=== PATIENT | male | born 1940 | race Caucasian/White ===

== ENCOUNTER 2018-08-20 20:33 | Inpatient (IN) | payer MEDICARE, BC ==
[~2018-08-20] VITALS: Ht 175.3 cm; Wt 68.5 kg
[2018-08-20] MEDS ORDERED: temazepam 15mg capsule PO PRN (21:00)
[2018-08-20] MEDS ORDERED: aspirin 81mg tab.chew PO ONE (21:15)
[2018-08-20] MEDS ORDERED: heparin 10,000 units/1 ML INJ IV ONE (21:15)
[2018-08-20] MEDS: heparin 25,000 UNIT/250ml bag 250 ML IV SCH (21:48)
[2018-08-20 22:07] LABS: PARTIAL THROMBOPLASTIN TIME 38 SECONDS (22-32)
[2018-08-20 22:09] LABS: ALBUMIN 2.8 G/DL (3.4-5.0); ALBUMIN/GLOBULIN RATIO 0.8 (1.1-1.5); ALKALINE PHOSPHATASE 84 IU/L (46-116); ANION GAP 9 (8-16); ASPARTATE AMINO TRANSFERASE 48 U/L (10-37); BILIRUBIN,TOTAL 0.5 MG/DL (0.1-1.0); BLOOD UREA NITROGEN 54 MG/DL (7-18); BUN/CREATININE RATIO 19.7 (6.6-38.0); CHLORIDE 100 MMOL/L (99-107); CREATININE 2.74 MG/DL (0.40-0.90); GLUCOSE 138 MG/DL (70-104); MAGNESIUM 2.8 MG/DL (1.5-2.4); POTASSIUM 4.6 MMOL/L (3.5-5.1); RED CELL DISTRIBUTION WIDTH 14.7 % (11.5-14.5); SODIUM 135 MMOL/L (135-145); TOTAL PROTEIN 6.2 G/DL (6.4-8.2); eGFR 17 ML/MIN
[2018-08-20 22:29] LABS: ALANINE AMINOTRANSFERASE 43 U/L (12-78)
[2018-08-20 22:47] LABS: WHITE BLOOD COUNT 10.8 X10'3 (4.5-11.0)
[2018-08-20 22:48] LABS: HEMATOCRIT 36.2 % (35.0-45.0); HEMOGLOBIN 11.8 g/dl (12.0-16.0); MEAN CORPUSCULAR HEMOGLOBIN 28.3 PG (27.0-31.0); MEAN CORPUSCULAR HGB CONC 32.7 % (33.0-36.5); MEAN CORPUSCULAR VOLUME 86.6 FL (78-98); MEAN PLATELET VOLUME 8.2 FL (7.4-10.4); PLATELET COUNT 768 X10'3 (140-440); RED BLOOD COUNT 4.18 X10'6 (4.20-5.60)
[2018-08-20 22:49] LABS: BASOPHILS % (AUTO) 0.2 % (0-1); EOSINOPHILS % (AUTO) 0 % (0-6); LYMPHOCYTES # (AUTO) 0.2 X10'3 (1.1-4.8); LYMPHOCYTES % (AUTO) 1.7 % (21-51); MONOCYTES # (AUTO) 0.3 X10'3 (0-0.9); MONOCYTES % (AUTO) 2.7 % (2-12); NEUTROPHILS # (AUTO) 10.3 X10'3 (1.8-7.7); NEUTROPHILS % (AUTO) 95.4 % (42-75)
[2018-08-20] MEDS ORDERED: bisacodyl 10mg suppository rectal RC PRN (22:50)
[2018-08-20] MEDS ORDERED: magnesium hydroxide 30ml (MOM) UD suspension PO PRN (22:50)
[2018-08-20] MEDS ORDERED: ondansetron/PF 4mg/2ml inj IV PRN (22:50)
[2018-08-20] MEDS ORDERED: diphenhydrAMINE 25mg capsule PO PRN (22:50)
[2018-08-20] MEDS ORDERED: acetaminophen 650mg rectal suppository RC PRN (22:50)
[2018-08-20] MEDS ORDERED: acetaminophen 325mg tablet PO PRN ×2 (22:50)
[2018-08-20] MEDS ORDERED: morphine 4 MG/ML inj SYRINge IV PRN ×2 (22:50)
[2018-08-20] MEDS ORDERED: mag hydrox/Alum hydrox/simeth 30ml oral suspension PO PRN (22:50)
[2018-08-20] MEDS ORDERED: diphenhydrAMINE 50 mg/ml inj IV PRN (22:50)
[2018-08-20] MEDS ORDERED: metoclopramide 5 mg/ml inj IV PRN (22:50)
[2018-08-20 23:37] LABS: HEMOGLOBIN A1C 5.5 % (4.5-6.2)
[2018-08-20 23:40] LABS: PHOSPHORUS 5.9 MG/DL (2.3-4.5)
[2018-08-21] VITALS (7 sets, daily range): BP systolic 113–148; BP diastolic 61–78
[2018-08-21] MEDS ORDERED: azithromycin/NS 500mg/250ml 250 ML IV SCH
[2018-08-21] MEDS: normal saline 1000ml 1,000 ML IV SCH (00:09)
[2018-08-21] MEDS: pantoprazole 40 MG vial IV SCH ×2 (00:09→08:06)
--- NOTE | 2018-08-21 00:16 | NUR ---
PT GIVEN MORPHINE FOR 6 OUT OF 10 PAIN TO HIS HIP. ZITHROMAX STARTED AND MIVF NS AT 20. AWITING IPA.
--- NOTE | 2018-08-21 00:23 | NUR ---
DAUGHTER, SCOTT RUVALCABA, CELL [phone]. HOME: [phone].
--- NOTE | 2018-08-21 01:30 | NUR ---
pt arrived to floor via gurney and transferred via slide board to bed. VSS, pt oriented to room and call light. 2RN skin check performed with Kamaljit KRAFT.
[2018-08-21] MEDS ORDERED: ipratropium/albuterol 3ml nebule NEB PRN (03:00)
[2018-08-21] MEDS: CefTRIAXone/D5W-Rocephin 1gm 50 ML IV SCH (03:07)
[2018-08-21 04:24] LABS: BASOPHILS % (AUTO) 0.2 % (0-1); EOSINOPHILS % (AUTO) 0.1 % (0-6); HEMATOCRIT 35.1 % (42.0-52.0); HEMOGLOBIN 11.4 g/dl (14.0-17.9); LYMPHOCYTES # (AUTO) 0.2 X10'3 (1.1-4.8); LYMPHOCYTES % (AUTO) 1.9 % (21-51); MEAN CORPUSCULAR HEMOGLOBIN 28.5 PG (27.0-31.0); MEAN CORPUSCULAR HGB CONC 32.6 % (33.0-36.5); MEAN CORPUSCULAR VOLUME 87.4 FL (78-98); MEAN PLATELET VOLUME 8.7 FL (7.4-10.4); MONOCYTES # (AUTO) 0.4 X10'3 (0-0.9); MONOCYTES % (AUTO) 4.4 % (2-12); NEUTROPHILS # (AUTO) 8.7 X10'3 (1.8-7.7); NEUTROPHILS % (AUTO) 93.4 % (42-75); PLATELET COUNT 724 X10'3 (140-440); RED BLOOD COUNT 4.02 X10'6 (4.70-6.10); WHITE BLOOD COUNT 9.3 X10'3 (4.5-11.0)
[2018-08-21 04:33] LABS: ALANINE AMINOTRANSFERASE 41 U/L (12-78); ALBUMIN 2.7 G/DL (3.4-5.0); ALBUMIN/GLOBULIN RATIO 0.8 (1.1-1.5); ALKALINE PHOSPHATASE 82 IU/L (46-116); ANION GAP 12 (8-16); ASPARTATE AMINO TRANSFERASE 50 U/L (10-37); BILIRUBIN,TOTAL 0.3 MG/DL (0.1-1.0); BLOOD UREA NITROGEN 59 MG/DL (7-18); BUN/CREATININE RATIO 21.7 (5.4-32.0); CALCIUM 7.9 MG/DL (8.5-10.1); CHLORIDE 100 MMOL/L (99-107); CHOLESTEROL 106 MG/DL (0-200); CREATININE 2.72 MG/DL (0.60-1.10); GLUCOSE 134 MG/DL (70-104); HDL CHOLESTEROL 35 MG/DL (35-60); LDL CHOLESTEROL 52 MG/DL (50-100); POTASSIUM 4.7 MMOL/L (3.5-5.1); SODIUM 138 MMOL/L (135-145); TOTAL CARBON DIOXIDE 26.5 MMOL/L (24-32); TOTAL PROTEIN 6.2 G/DL (6.4-8.2); TRIGLYCERIDES 82 MG/DL (20-135); eGFR 23 ML/MIN
[2018-08-21] MEDS: heparin 25,000 UNIT/250ml bag 250 ML IV SCH (05:12)
--- NOTE | 2018-08-21 06:13 | NUR ---
Problems reprioritized. Patient report given, questions answered & plan of care reviewed with Barb KRAFT.
--- NOTE | 2018-08-21 06:30 | NUR ---
Patient in room PCU 3019. I have received report from Danielle KRAFT and had the opportunity to ask questions and assume patient care.
[2018-08-21] MEDS: docusate sod 100mg capsule PO SCH ×2 (08:07→21:03)
[2018-08-21] MEDS: aspirin 81mg tab.chew PO SCH (08:07)
[2018-08-21] MEDS: metoprolol tartrate 12.5mg (1/2 tablet) PO SCH ×2 (08:08→21:06)
[2018-08-21] MEDS: oseltamivir phos 75mg capsule PO SCH ×2 (08:08→21:04)
[2018-08-21] MEDS: nitroGLYCERIN 0.1mg/hour patch TD SCH (08:08)
[2018-08-21 11:12] LABS: CREATINE KINASE 278 U/L (39-308)
--- NOTE | 2018-08-21 11:18 | NUR ---
Paged Dr. Richards: PAGER ID: [phone] MESSAGE: Barb ALVA [phone] RE: Bobby Stoner [phone]. Critical value from lab. 12 hr troponin: 2.72.
[2018-08-21] MEDS: atorvastatin 10mg tablet PO SCH (11:50)
[2018-08-21] MEDS: furosemide 20 MG/2 ML vial IV SCH ×2 (11:50→21:03)
[2018-08-21] MEDS ORDERED: HYDR12.55 PO (12:27)
[2018-08-21] MEDS ORDERED: IPRA3AMP31 IH (12:27)
[2018-08-21] MEDS ORDERED: FLO0.4C PO (12:27)
[2018-08-21] MEDS ORDERED: ALB0.5UD IH (12:27)
[2018-08-21] MEDS ORDERED: PRED5TAB PO (12:27)
[2018-08-21] MEDS ORDERED: ALBU18HF2 INH (12:27)
[2018-08-21] MEDS ORDERED: non-formulary drug (Albuterol Sulfate (Ventolin Hfa) 2 PUFFS) INH PRN (16:50)
[2018-08-21] MEDS: heparin 10,000 units/1 ML INJ IV PRN (18:30)
--- NOTE | 2018-08-21 18:30 | NUR ---
Problems reprioritized. Patient report given, questions answered & plan of care reviewed with Zuleima KRAFT.
[2018-08-21] MEDS: ipratropium/albuterol 3ml nebule IH SCH (19:56)
[2018-08-21] MEDS: lactobacillus rhamnosus 10,000 MMU CELLS/CAPSULE PO SCH (21:04)
[2018-08-22] VITALS (8 sets, daily range): BP systolic 97–149; BP diastolic 55–69
[2018-08-22] MEDS: heparin 10,000 units/1 ML INJ IV PRN (02:05)
[2018-08-22] MEDS: heparin 25,000 UNIT/250ml bag 250 ML IV SCH ×4 (02:08→17:48)
[2018-08-22] MEDS: CefTRIAXone/D5W-Rocephin 1gm 50 ML IV SCH (02:46)
--- NOTE | 2018-08-22 06:23 | NUR ---
Patient in room PCU 3019. I have received report from Zuleima KRAFT and had the opportunity to ask questions and assume patient care. Will continue to monitor patient.
--- NOTE | 2018-08-22 06:30 | NUR ---
Problems reprioritized. Patient report given, questions answered & plan of care reviewed with Abiola KRAFT.
[2018-08-22] MEDS: furosemide 20 MG/2 ML vial IV SCH (07:27)
[2018-08-22] MEDS: lactobacillus rhamnosus 10,000 MMU CELLS/CAPSULE PO SCH ×2 (07:28→20:09)
[2018-08-22] MEDS: atorvastatin 10mg tablet PO SCH (07:28)
[2018-08-22] MEDS: tamsulosin 0.4mg capsule PO SCH (07:28)
[2018-08-22] MEDS: nitroGLYCERIN 0.1mg/hour patch TD SCH (07:28)
[2018-08-22] MEDS: pantoprazole 40mg Tablet.DR PO SCH (07:29)
[2018-08-22] MEDS: aspirin 81mg tab.chew PO SCH (07:29)
[2018-08-22] MEDS: HYDROchlorothiazide 12.5mg capsule PO SCH (07:29)
[2018-08-22] MEDS: docusate sod 100mg capsule PO SCH ×2 (07:29→20:09)
[2018-08-22] MEDS: metoprolol tartrate 12.5mg (1/2 tablet) PO SCH ×2 (07:32→20:10)
[2018-08-22] MEDS: oseltamivir phos 75mg capsule PO SCH ×2 (07:32→20:09)
[2018-08-22 07:46] LABS: BASOPHILS % (AUTO) 0 % (0-1); EOSINOPHILS # (AUTO) 0.1 X10'3 (0-0.9); HEMATOCRIT 36.9 % (42.0-52.0); LYMPHOCYTES # (AUTO) 0.4 X10'3 (1.1-4.8); LYMPHOCYTES % (AUTO) 4.3 % (21-51); MEAN CORPUSCULAR HGB CONC 32.4 % (33.0-36.5); MEAN CORPUSCULAR VOLUME 86.4 FL (78-98); MEAN PLATELET VOLUME 8.6 FL (7.4-10.4); MONOCYTES # (AUTO) 0.6 X10'3 (0-0.9); MONOCYTES % (AUTO) 6.5 % (2-12); NEUTROPHILS # (AUTO) 8.3 X10'3 (1.8-7.7); NEUTROPHILS % (AUTO) 88.2 % (42-75); PLATELET COUNT 838 X10'3 (140-440); RED BLOOD COUNT 4.27 X10'6 (4.70-6.10); RED CELL DISTRIBUTION WIDTH 15.7 % (11.5-14.5); WHITE BLOOD COUNT 9.4 X10'3 (4.5-11.0)
[2018-08-22] MEDS ORDERED: predniSONE 5mg tablet PO SCH (08:00)
[2018-08-22 08:03] LABS: ALANINE AMINOTRANSFERASE 34 U/L (12-78); ALBUMIN 2.5 G/DL (3.4-5.0); ALBUMIN/GLOBULIN RATIO 0.7 (1.1-1.5); ALKALINE PHOSPHATASE 67 IU/L (46-116); ANION GAP 11 (8-16); ASPARTATE AMINO TRANSFERASE 47 U/L (10-37); BILIRUBIN,TOTAL 0.3 MG/DL (0.1-1.0); BLOOD UREA NITROGEN 73 MG/DL (7-18); BUN/CREATININE RATIO 30.3 (5.4-32.0); CALCIUM 7.7 MG/DL (8.5-10.1); CHLORIDE 100 MMOL/L (99-107); CREATININE 2.41 MG/DL (0.60-1.10); GLUCOSE 99 MG/DL (70-104); POTASSIUM 4.1 MMOL/L (3.5-5.1); SODIUM 137 MMOL/L (135-145); TOTAL CARBON DIOXIDE 26.1 MMOL/L (24-32); TOTAL PROTEIN 5.9 G/DL (6.4-8.2); eGFR 26 ML/MIN
[2018-08-22] MEDS: ipratropium/albuterol 3ml nebule IH SCH ×6 (08:12→23:23)
[2018-08-22 08:33] LABS: TROPONIN I 2.79 NG/ML (0.0-0.05)
[2018-08-22] MEDS ORDERED: diltiazem 5mg/ml 5ml inj. IV ONE (09:00)
--- NOTE | 2018-08-22 10:03 | NUR ---
Sent page to Dr. Richards: PAGER ID: [phone] MESSAGE: [phone] Herbie: HR 114, BP 113/69 30 mins after 10mg IV Cardizem push. Thanks, Abiola hernandez [phone]
[2018-08-22] MEDS ORDERED: diltiazem-D5W 125mg/125ml 125 ML IV SCH (10:10)
--- NOTE | 2018-08-22 10:15 | NUR ---
Received telephone orders from Dr. Richards to start IV Cardizem at 5mLs/hr
--- NOTE | 2018-08-22 11:01 | NUR ---
Called pharmacy twice, still preparing the bag of cardizem
[2018-08-22 11:40] LABS: PLATELET ESTIMATE INCREASED
[2018-08-22 11:41] LABS: ANISOCYTOSIS 1+
[2018-08-22 11:42] LABS: BURR CELLS 1+; ELLIPTOCYTES 1+; POLYCHROMASIA 1+
[2018-08-22] MEDS: methylPREDNISolone sod succ 125mg/2ml vial IV SCH ×2 (12:06→15:04)
--- NOTE | 2018-08-22 13:56 | NUR ---
Sent page to Dr. Richards: PAGER ID: [phone] MESSAGE: [phone] Herbie: HR is sustaining 130's-140's, BP 109/69. Cardizem running at 5/hr, would you like it increased? Thanks, Abiola x [phone]
--- NOTE | 2018-08-22 14:00 | NUR ---
Received telephone order from Dr. Richards to increase Cardizem gtt rate to 7mLs/hr. Will continue to monitor patient.
--- NOTE | 2018-08-22 14:37 | NUR ---
Sent page to Dr. Richards: PAGER ID: [phone] MESSAGE: [phone] Herbie: HR 125 and BP 113/61. Cardizem running at 7/hr. Thanks, Abiola [phone]
--- NOTE | 2018-08-22 14:40 | NUR ---
Received telephone order from Dr. Richards to increase Cardizem gtt rate to 8mLs/hr. Will continue to monitor patient.
--- NOTE | 2018-08-22 15:54 | NUR ---
Sent page to Dr. Richards: PAGER ID: [phone] MESSAGE: [phone] Herbie: HR 119, BR 97/55. Jooix running at 8/hr. Thanks, Abiola [phone]
[2018-08-22] MEDS: normal saline 1000ml 1,000 ML IV SCH ×2 (16:05→22:48)
--- NOTE | 2018-08-22 17:09 | NUR ---
Sent page to Dr. Richards: PAGER ID: [phone] MESSAGE: [phone] Herbie: Patient has converted to NSR with HR in 80's, BP 100/57. Cardizem still running at 7/hr, NS @ 80/hr. Thanks, Abiola [phone]
--- NOTE | 2018-08-22 17:11 | NUR ---
Received telephone orders from Dr. Richards to stop the Cardizem drip since the patient converted to NSR.
--- NOTE | 2018-08-22 18:16 | NUR ---
Problems reprioritized. Patient report given, questions answered & plan of care reviewed with Zuleima KRAFT. Bedside report complete, patient stable at transfer of care.
--- NOTE | 2018-08-22 18:30 | NUR ---
Patient in room PCU 3019. I have received report from Abiola KRAFT and had the opportunity to ask questions and assume patient care.
[2018-08-23] MEDS: methylPREDNISolone sod succ 125mg/2ml vial IV SCH ×3 (00:23→19:41)
[2018-08-23 02:00] VITALS: BP 132/57
[2018-08-23 02:33] LABS: BASOPHILS % (AUTO) 0 % (0-1); EOSINOPHILS % (AUTO) 0.7 % (0-6); HEMATOCRIT 38.5 % (42.0-52.0); HEMOGLOBIN 12.4 g/dl (14.0-17.9); LYMPHOCYTES # (AUTO) 0.2 X10'3 (1.1-4.8); LYMPHOCYTES % (AUTO) 3.8 % (21-51); MEAN CORPUSCULAR HEMOGLOBIN 27.7 PG (27.0-31.0); MEAN CORPUSCULAR HGB CONC 32.3 % (33.0-36.5); MEAN CORPUSCULAR VOLUME 85.7 FL (78-98); MEAN PLATELET VOLUME 8.2 FL (7.4-10.4); MONOCYTES # (AUTO) 0.2 X10'3 (0-0.9); MONOCYTES % (AUTO) 3.6 % (2-12); NEUTROPHILS % (AUTO) 91.9 % (42-75); PLATELET COUNT 802 X10'3 (140-440); RED BLOOD COUNT 4.49 X10'6 (4.70-6.10); WHITE BLOOD COUNT 4.3 X10'3 (4.5-11.0)
[2018-08-23] MEDS: CefTRIAXone/D5W-Rocephin 1gm 50 ML IV SCH (02:33)
[2018-08-23 02:38] LABS: ALANINE AMINOTRANSFERASE 31 U/L (12-78); ALBUMIN 2.4 G/DL (3.4-5.0); ALBUMIN/GLOBULIN RATIO 0.7 (1.1-1.5); ALKALINE PHOSPHATASE 64 IU/L (46-116); ANION GAP 9 (8-16); ASPARTATE AMINO TRANSFERASE 35 U/L (10-37); BILIRUBIN,TOTAL 0.3 MG/DL (0.1-1.0); BLOOD UREA NITROGEN 71 MG/DL (7-18); BUN/CREATININE RATIO 32.9 (5.4-32.0); CALCIUM 7.9 MG/DL (8.5-10.1); CHLORIDE 101 MMOL/L (99-107); CREATININE 2.16 MG/DL (0.60-1.10); GLUCOSE 150 MG/DL (70-104); POTASSIUM 4.6 MMOL/L (3.5-5.1); SODIUM 140 MMOL/L (135-145); TOTAL CARBON DIOXIDE 30.2 MMOL/L (24-32); eGFR 30 ML/MIN
[2018-08-23] MEDS: heparin 25,000 UNIT/250ml bag 250 ML IV SCH ×2 (02:57→14:17)
[2018-08-23] MEDS: ipratropium/albuterol 3ml nebule IH SCH ×6 (04:10→23:18)
[2018-08-23] MEDS: normal saline 1000ml 1,000 ML IV SCH (05:16)
[2018-08-23 06:00] VITALS: BP 154/73
--- NOTE | 2018-08-23 06:20 | NUR ---
Problems reprioritized. Patient report given, questions answered & plan of care reviewed with Barb KRAFT.
--- NOTE | 2018-08-23 06:30 | NUR ---
Patient in room PCU 3019. I have received report from Zuleima KRAFT and had the opportunity to ask questions and assume patient care.
[2018-08-23] MEDS: docusate sod 100mg capsule PO SCH ×2 (07:31→19:41)
[2018-08-23] MEDS: atorvastatin 10mg tablet PO SCH (07:31)
[2018-08-23] MEDS: pantoprazole 40mg Tablet.DR PO SCH (07:31)
[2018-08-23] MEDS: aspirin 81mg tab.chew PO SCH (07:31)
[2018-08-23] MEDS: metoprolol tartrate 12.5mg (1/2 tablet) PO SCH ×2 (07:31→19:42)
[2018-08-23] MEDS: tamsulosin 0.4mg capsule PO SCH (07:31)
[2018-08-23] MEDS: oseltamivir phos 75mg capsule PO SCH ×2 (07:31→19:43)
[2018-08-23] MEDS: nitroGLYCERIN 0.1mg/hour patch TD SCH (07:32)
[2018-08-23] MEDS: HYDROchlorothiazide 12.5mg capsule PO SCH (07:32)
[2018-08-23] MEDS: lactobacillus rhamnosus 10,000 MMU CELLS/CAPSULE PO SCH ×2 (07:32→19:41)
[2018-08-23] MEDS ORDERED: metoprolol tartrate 12.5mg (1/2 tablet) PO ONE (08:00)
[2018-08-23] MEDS ORDERED: metoprolol tartrate 12.5mg (1/2 tablet) PO SCH (08:00)
[2018-08-23 11:00] VITALS: BP 135/69
[2018-08-23 15:00] VITALS: BP 158/73
--- NOTE | 2018-08-23 18:30 | NUR ---
Problems reprioritized. Patient report given, questions answered & plan of care reviewed with Charlie KRAFT.
[2018-08-24] VITALS (16 sets, daily range): BP systolic 136–188; BP diastolic 70–82
[2018-08-24] MEDS: CefTRIAXone/D5W-Rocephin 1gm 50 ML IV SCH (02:48)
[2018-08-24] MEDS: ipratropium/albuterol 3ml nebule IH SCH ×6 (03:08→23:07)
[2018-08-24 04:48] LABS: ALANINE AMINOTRANSFERASE 27 U/L (12-78); ALBUMIN 2.4 G/DL (3.4-5.0); ALBUMIN/GLOBULIN RATIO 0.7 (1.1-1.5); ALKALINE PHOSPHATASE 57 IU/L (46-116); ANION GAP 10 (8-16); ASPARTATE AMINO TRANSFERASE 27 U/L (10-37); BILIRUBIN,TOTAL 0.3 MG/DL (0.1-1.0); BLOOD UREA NITROGEN 68 MG/DL (7-18); BUN/CREATININE RATIO 42.8 (5.4-32.0); CALCIUM 7.8 MG/DL (8.5-10.1); CHLORIDE 102 MMOL/L (99-107); CREATININE 1.59 MG/DL (0.60-1.10); GLUCOSE 149 MG/DL (70-104); POTASSIUM 3.7 MMOL/L (3.5-5.1); SODIUM 142 MMOL/L (135-145); TOTAL CARBON DIOXIDE 29.8 MMOL/L (24-32); TOTAL PROTEIN 5.7 G/DL (6.4-8.2); eGFR 42 ML/MIN
[2018-08-24] MEDS: heparin 10,000 units/1 ML INJ IV PRN (05:12)
[2018-08-24] MEDS: heparin 25,000 UNIT/250ml bag 250 ML IV SCH ×3 (05:18→20:30)
[2018-08-24] MEDS: normal saline 1000ml 1,000 ML IV SCH ×2 (05:19→14:32)
[2018-08-24 05:30] LABS: BASOPHILS % (AUTO) 0.1 % (0-1); EOSINOPHILS # (AUTO) 0.1 X10'3 (0-0.9); EOSINOPHILS % (AUTO) 1.1 % (0-6); HEMATOCRIT 35.7 % (42.0-52.0); HEMOGLOBIN 11.7 g/dl (14.0-17.9); LYMPHOCYTES # (AUTO) 0.3 X10'3 (1.1-4.8); LYMPHOCYTES % (AUTO) 4.1 % (21-51); MEAN CORPUSCULAR HEMOGLOBIN 27.8 PG (27.0-31.0); MEAN CORPUSCULAR HGB CONC 32.6 % (33.0-36.5); MEAN CORPUSCULAR VOLUME 85.1 FL (78-98); MEAN PLATELET VOLUME 8.7 FL (7.4-10.4); MONOCYTES # (AUTO) 0.7 X10'3 (0-0.9); MONOCYTES % (AUTO) 11.3 % (2-12); NEUTROPHILS # (AUTO) 5.1 X10'3 (1.8-7.7); NEUTROPHILS % (AUTO) 83.4 % (42-75); PLATELET COUNT 800 X10'3 (140-440); RED CELL DISTRIBUTION WIDTH 15.1 % (11.5-14.5); WHITE BLOOD COUNT 6.1 X10'3 (4.5-11.0)
--- NOTE | 2018-08-24 06:34 | NUR ---
Problems reprioritized. Patient report given, questions answered & plan of care reviewed with Tamia KRAFT.
[2018-08-24] MEDS: pantoprazole 40mg Tablet.DR PO SCH (07:53)
[2018-08-24] MEDS: metoprolol tartrate 12.5mg (1/2 tablet) PO SCH ×2 (07:53→20:18)
[2018-08-24] MEDS: methylPREDNISolone sod succ 125mg/2ml vial IV SCH ×2 (07:54→20:17)
[2018-08-24] MEDS: docusate sod 100mg capsule PO SCH ×2 (07:54→20:18)
[2018-08-24] MEDS: HYDROchlorothiazide 12.5mg capsule PO SCH (07:54)
[2018-08-24] MEDS: lactobacillus rhamnosus 10,000 MMU CELLS/CAPSULE PO SCH ×2 (07:54→20:18)
[2018-08-24] MEDS: tamsulosin 0.4mg capsule PO SCH (07:54)
[2018-08-24] MEDS: nitroGLYCERIN 0.1mg/hour patch TD SCH (07:54)
[2018-08-24] MEDS: aspirin 81mg tab.chew PO SCH (07:56)
[2018-08-24] MEDS: atorvastatin 10mg tablet PO SCH (07:56)
[2018-08-24] MEDS ORDERED: ceFAZolin 1GM/D5W- ADD-VANTAGE 50 ML IV ONE (08:00)
[2018-08-24] MEDS: oseltamivir phos 75mg capsule PO SCH ×2 (08:07→20:23)
--- NOTE | 2018-08-24 08:12 | NUR ---
Heparin gtt stopped per Dr. Stout orders.
[2018-08-24] MEDS ORDERED: ringers solution, lacted 1,000 ML IV SCH ×2 (10:50→13:23)
[2018-08-24] MEDS ORDERED: ceFAZolin 1000mg inj ONE ×3 (10:58→12:54)
--- NOTE | 2018-08-24 11:30 | NUR ---
Patient to OR. Report called to production recovery operator.
[2018-08-24] MEDS ORDERED: midazolam 2 mg/2 ml injection ONE (12:22)
[2018-08-24] MEDS ORDERED: fentaNYL/PF 50MCG/1 ML 2ML syringe ONE ×2 (12:22→12:42)
[2018-08-24] MEDS ORDERED: ketamine 50mg/5ml syringe ONE (12:22)
[2018-08-24] MEDS ORDERED: propofol inj 20 ML IV ONE (12:24)
[2018-08-24] MEDS ORDERED: LIDOcaine 2% (20mg/ml) 5ml vial ONE (12:24)
[2018-08-24] MEDS ORDERED: BUPIVAcaine/PF 2.5mg/ml (0.25%) 10ml vial ONE (12:27)
[2018-08-24] MEDS ORDERED: epiNEPHrine 1 mg/ml inj ONE (12:27)
[2018-08-24] MEDS ORDERED: LABETALOL HCL 200mg/40ml (5 MG/ML) inj. IV ONE (12:28)
[2018-08-24] MEDS ORDERED: ROPIVAcaine 0.5% (5mg/ml) 30ml vial ONE (12:54)
[2018-08-24] MEDS ORDERED: ROPIVAcaine 0.5% (5mg/ml) 30ml vial IJ ONE (12:58)
--- NOTE | 2018-08-24 13:20 | NUR ---
Received from OR via bed, accompanied by Anesthesiologist. Report received. Initial physical assessment done and recorded.
[2018-08-24] MEDS ORDERED: morphine 4 MG/ML inj SYRINge IV PRN (13:25)
[2018-08-24] MEDS ORDERED: HYDROmorphone inj. 0.5 MG/0.5 ML DISP.SYRIN IV PRN (13:25)
[2018-08-24] MEDS ORDERED: ondansetron/PF 4mg/2ml inj IV PRN (13:25)
--- NOTE | 2018-08-24 13:50 | NUR ---
Discharge criteria met, report to receiving floor. Transferred to room in stable condition.
[2018-08-24] MEDS ORDERED: heparin 10,000 units/1 ML INJ IV PRN (14:20)
[2018-08-24] MEDS ORDERED: hydrALAZINE 20mg/ml inj. IV ONE ×2 (15:20→17:15)
--- NOTE | 2018-08-24 18:45 | NUR ---
Problems reprioritized. Patient report given, questions answered & plan of care reviewed with ABENA Anthony.
[2018-08-25] MEDS ORDERED: metoprolol tartrate 50mg tablet PO ONE (01:15)
[2018-08-25] MEDS: CefTRIAXone/D5W-Rocephin 1gm 50 ML IV SCH (01:21)
[2018-08-25 02:00] VITALS: BP 183/80
[2018-08-25 02:28] LABS: BASOPHILS % (AUTO) 0.1 % (0-1); EOSINOPHILS # (AUTO) 0.2 X10'3 (0-0.9); EOSINOPHILS % (AUTO) 1.6 % (0-6); HEMATOCRIT 36.3 % (42.0-52.0); HEMOGLOBIN 11.6 g/dl (14.0-17.9); LYMPHOCYTES # (AUTO) 0.2 X10'3 (1.1-4.8); MEAN CORPUSCULAR HEMOGLOBIN 27.5 PG (27.0-31.0); MEAN CORPUSCULAR HGB CONC 32.1 % (33.0-36.5); MEAN CORPUSCULAR VOLUME 85.6 FL (78-98); MEAN PLATELET VOLUME 8.3 FL (7.4-10.4); MONOCYTES # (AUTO) 0.6 X10'3 (0-0.9); MONOCYTES % (AUTO) 5.1 % (2-12); NEUTROPHILS # (AUTO) 11.1 X10'3 (1.8-7.7); NEUTROPHILS % (AUTO) 91.2 % (42-75); PLATELET COUNT 971 X10'3 (140-440); RED BLOOD COUNT 4.24 X10'6 (4.70-6.10); RED CELL DISTRIBUTION WIDTH 14.8 % (11.5-14.5); WHITE BLOOD COUNT 12.2 X10'3 (4.5-11.0)
[2018-08-25 02:48] LABS: ALANINE AMINOTRANSFERASE 53 U/L (12-78); ALBUMIN 2.4 G/DL (3.4-5.0); ALBUMIN/GLOBULIN RATIO 0.8 (1.1-1.5); ALKALINE PHOSPHATASE 62 IU/L (46-116); ANION GAP 8 (8-16); ASPARTATE AMINO TRANSFERASE 56 U/L (10-37); BILIRUBIN,TOTAL 0.4 MG/DL (0.1-1.0); BLOOD UREA NITROGEN 52 MG/DL (7-18); BUN/CREATININE RATIO 45.2 (5.4-32.0); CALCIUM 7.6 MG/DL (8.5-10.1); CHLORIDE 104 MMOL/L (99-107); CREATININE 1.15 MG/DL (0.60-1.10); GLUCOSE 136 MG/DL (70-104); POTASSIUM 3.6 MMOL/L (3.5-5.1); SODIUM 143 MMOL/L (135-145); TOTAL CARBON DIOXIDE 31.3 MMOL/L (24-32); TOTAL PROTEIN 5.5 G/DL (6.4-8.2); eGFR 61 ML/MIN
[2018-08-25] MEDS: ipratropium/albuterol 3ml nebule IH SCH ×2 (02:54→07:17)
[2018-08-25] MEDS: heparin 25,000 UNIT/250ml bag 250 ML IV SCH (03:06)
[2018-08-25] MEDS ORDERED: furosemide 40mg/4ml inj ONE (05:50)
--- NOTE | 2018-08-25 06:50 | NUR ---
Patient in room PCU 3019. I have received report from KSENIA KRAFT and had the opportunity to ask questions and assume patient care.
[2018-08-25 07:19] VITALS: BP 152/73
[2018-08-25] MEDS ORDERED: metoprolol tartrate 12.5mg (1/2 tablet) PO SCH (08:00)
[2018-08-25] MEDS: docusate sod 100mg capsule PO SCH (08:39)
[2018-08-25] MEDS: HYDROchlorothiazide 12.5mg capsule PO SCH (08:39)
[2018-08-25] MEDS: lactobacillus rhamnosus 10,000 MMU CELLS/CAPSULE PO SCH (08:39)
[2018-08-25] MEDS: pantoprazole 40mg Tablet.DR PO SCH (08:39)
[2018-08-25] MEDS: nitroGLYCERIN 0.1mg/hour patch TD SCH (08:40)
[2018-08-25] MEDS: atorvastatin 10mg tablet PO SCH (08:40)
[2018-08-25] MEDS: aspirin 81mg tab.chew PO SCH (08:40)
[2018-08-25] MEDS: oseltamivir phos 75mg capsule PO SCH (08:40)
[2018-08-25] MEDS: tamsulosin 0.4mg capsule PO SCH (08:40)
[2018-08-25] MEDS: methylPREDNISolone sod succ 125mg/2ml vial IV SCH (08:50)
[2018-08-25 11:20] VITALS: BP 156/68
--- NOTE | 2018-08-25 11:40 | NUR ---
Initial: Pt admitted with rt hip fx now s/p rt hip pinning. Pt on regular diet with recent documented PO intake average 50%. Pt seen at bedside states he is with a low appetite, possibly r/t constipation as LBM was 1/3 and pt states he feels constipated. Pt on routine Colace, agreeable to prunes with lunch tray, d/w dietary. Pt denies and food allergies or difficulty chewing/swallowing. Will continue to follow. Recommendations: 1) Continue with regular diet 2) Monitor need for additional bowel care 3) Wt per rx Addendum: 08/25/18 at [address] Amended: Links added.
--- NOTE | 2018-08-25 12:30 | NUR ---
Called Magaly KRAFT at [facility] for report
--- NOTE | 2018-08-25 12:45 | NUR ---
Daughter Katty called to clarify that patient is not on isolation for flu and all tamiflu has been complete. I will pass this info on the [facility].
--- NOTE | 2018-08-25 13:00 | NUR ---
SPOKE TO JOSE AT [facility]. PATIENT IS NOT ON ISOLATION OS OF THIS AFTERNOON AND HAS NOT HAD A TEMPERATURE SINCE 08/21. [facility] IS AWARE AND PATIENT WILL BE TRANSFERRED TO FACILITY TODAY
--- NOTE | 2018-08-25 13:35 | NUR ---
PATIENT DISCHARGED WITH [facility] TO [facility]. NO BELONGINGS WITH PATIENT. IV REMOVED. REPOSRT CALLED PATIENT ALERT AND APPROPRIATE
[2018-08-25] MEDS ORDERED: apixaban 5mg tablet PO SCH (20:00)
== END 2018-08-25 13:40 | DRG 480 ==
LOC: ER 20:34 → ED HOLD 22:48 → EDSEX 22:48 → PCU 3S 08-21 01:10
PROVIDERS: ADMIT Family Medicine; ATTEND Internal Medicine
PROC: 0QS634Z Reposition Right Upper Femur with Internal Fixation Device, Percutaneous Approach (ICD-10-PCS; principal; 2018-08-24 12:25)
DX: S72.001A Fracture of unspecified part of neck of right femur, initial encounter for closed fracture (principal); J96.20 Acute and chronic respiratory failure, unspecified whether with hypoxia or hypercapnia; I21.4 Non-ST elevation (NSTEMI) myocardial infarction; I50.43 Acute on chronic combined systolic (congestive) and diastolic (congestive) heart failure; J44.1 Chronic obstructive pulmonary disease with (acute) exacerbation; N17.9 Acute kidney failure, unspecified; I13.0 Hypertensive heart and chronic kidney disease with heart failure and stage 1 through stage 4 chronic kidney disease, or unspecified chronic kidney disease; N18.9 Chronic kidney disease, unspecified; I27.20 Pulmonary hypertension, unspecified; I07.1 Rheumatic tricuspid insufficiency; I48.0 Paroxysmal atrial fibrillation; W01.0XXA Fall on same level from slipping, tripping and stumbling without subsequent striking against object, initial encounter; J09.X2 Influenza due to identified novel influenza A virus with other respiratory manifestations; Z99.81 Dependence on supplemental oxygen; Z90.49 Acquired absence of other specified parts of digestive tract; Z88.1 Allergy status to other antibiotic agents; Z79.899 Other long term (current) drug therapy; Z79.01 Long term (current) use of anticoagulants; Z87.891 Personal history of nicotine dependence; Y93.01 Activity, walking, marching and hiking; Y92.098 Other place in other non-institutional residence as the place of occurrence of the external cause; Y99.8 Other external cause status
CPT/HCPCS: 36415; 71045; 73502; 76001; 80053; 80061; 82550; 83036; 83735; 83880; 84100; 84443; 84484; 85025; 85610; 85730; 87070; 93005; 93306; 94640; 94760; 96374; 97161; 97530; 99285; C9113; G0378; J0171; J0360; J0456; J0690; J0696; J1644; J1940; J2001; J2250; J2270; J2704; J2795; J2930; J3010; J3490; J7030; J7120; J7512